=== PATIENT | female | born 1945 | race Two or more races ===

== ENCOUNTER → 2019-09-29 | Day surgery (SDC) | payer MEDICARE ==
[2019-09-26 15:26] LABS: BASOPHILS % 0.4 % (0.0-1.0); EOSINOPHILS # (AUTO) 0.2 (0.0-0.4); EOSINOPHILS % 2.5 % (0.0-6.0); HEMATOCRIT 40.3 % (34.2-44.1); HEMOGLOBIN 13.6 g/dL (12.0-16.0); LYMPHOCYTES # (AUTO) 1.4 (1.0-3.2); LYMPHOCYTES % 17.1 % (18.0-39.1); MEAN CORPUSCULAR HEMOGLOBIN 30.8 pg (28-32); MEAN CORPUSCULAR HGB CONC 33.7 g/dL (31-35); MEAN CORPUSCULAR VOLUME 91.4 fL (81-99); MONOCYTES # (AUTO) 0.5 (0.2-0.8); MONOCYTES % 6.2 % (4.4-11.3); NEUTROPHILS # (AUTO) 5.8 (2.1-6.9); NEUTROPHILS % 73.4 % (38.7-80.0); PLATELET COUNT 263 x10e3/uL (140-360); RED BLOOD COUNT 4.41 x10e6/uL (3.6-5.1); RED CELL DISTRIBUTION WIDTH 12.4 % (11.7-14.4)
[~2019-09-29] MED LIST: CALCIUM CARBON500 MG PO; FAMOTIDINE20 MG PO; LIDOCAINE HCL 2% LOCAL INJ 5 ML SDV VIAL INJ ONE; MIDAZOLAM HCL 2 MG/2 ML VIAL ONE; PANTOPRAZOLE SO40 MG PO; PROPOFOL IV EMULSION 10 MG/ML 50 ML VIAL ONE; VITAMIN D3400 UNI1 PO
[2019-09-29 12:15] VITALS: BP 109/60
--- NOTE | 2019-09-29 18:56 | Operative Report ---
DATE OF PROCEDURE: SURGEON: Mauri Higuera MD PROCEDURE PERFORMED: Esophagogastroduodenoscopy. PREOPERATIVE DIAGNOSIS: Gastroesophageal reflux disease. POSTOPERATIVE DIAGNOSES: Hiatal hernia with reflux esophagitis and gastritis. PREOP MEDICATIONS: Consisted of MAC. DESCRIPTION OF PROCEDURE: Using an Flipps video gastroscope was inserted into the patient's oropharynx, advanced to hypopharynx and down to the esophagus. The mucosa present in the esophagus was normal except for a very small area at the GE junction, which was a little bit inflamed, which has been followed by a small sliding type hiatal hernia from 37-38 cm. The stomach was entered and insufflated with air. The mucosa present in the cardia, fundus, body, and antrum was viewed. There was gastritis in the antrum, but the rest of the stomach appeared to be normal. Biopsy was obtained in the antrum, looking for the Helicobacter pylori infection. The pylorus was visualized and entered the duodenal bulb and postbulbar duodenum were found to be within normal limits. The endoscope was then withdrawn back up into the stomach. Retroflexed view in the cardia and fundus from below was normal. It was then placed back in the body of the stomach and slowly withdrawn back up into the esophagus. A biopsy was obtained of the GE junction. The scope was then further withdrawn back into the hypopharynx, oropharynx, and out of the patient's mouth and the procedure was ended. In conclusion, we have findings of a hiatal hernia with a sliding type of hiatal hernia and reflux esophagitis as well as a gastritis. Mauri Higuera MD SAF/MODL /[id number]
== END | disposition home or self-care (01) ==
LOC: OR 08:43
PROVIDERS: ATTEND Internal Medicine Gastroenterology
DX: K29.70 Gastritis, unspecified, without bleeding (principal); K21.0 Gastro-esophageal reflux disease with esophagitis; K44.9 Diaphragmatic hernia without obstruction or gangrene; K59.04 Chronic idiopathic constipation; R07.89 Other chest pain; Z91.041 Radiographic dye allergy status; Z01.810 Encounter for preprocedural cardiovascular examination; Z01.812 Encounter for preprocedural laboratory examination; Z86.010 Personal history of colon polyps
CPT/HCPCS: 36415; 43239; 85025; 88305; 88312; 93005; J2001; J2250; J2704

== ENCOUNTER → 2019-10-20 | Outpatient (CLI) | payer MEDICARE ==
[~2019-10-20] MED LIST changes: -LIDOCAINE HCL 2% LOCAL INJ 5 ML SDV VIAL INJ ONE; -MIDAZOLAM HCL 2 MG/2 ML VIAL ONE; -PROPOFOL IV EMULSION 10 MG/ML 50 ML VIAL ONE
--- NOTE | 2019-10-20 10:19 | Diagnostic Imaging Report ---
Esophagram. History: Atypical chest pain. Fluoroscopy Time: 0.52 min. Reference Air Kerma (Ka, r): 16.2 mGy. Technique/findings: The patient was given air crystals, thick barium, and thin barium to drink in upright and prone positions. Multiple images of the hypopharynx, esophagus, and proximal stomach were obtained. There is esophageal dysmotility with tertiary contractions noted. Contrast material is grossly clear through the esophagus and traverses the gastroesophageal junction. Esophageal mucosa is otherwise unremarkable without evidence for filling defect, stricture, or other mucosal abnormality. There is a small hiatal hernia present. Mild gastroesophageal reflux noted during the course of the examination. The gastric fundus is unremarkable. IMPRESSION: Esophageal dysmotility. Small hiatal hernia. Gastroesophageal reflux. Signed by: Dr. Kamran Morales MD on 10/20/2019 10:15 AM
== END ==
LOC: DX 08:29
PROVIDERS: ATTEND Internal Medicine Gastroenterology
DX: R07.89 Other chest pain (principal)
CPT/HCPCS: 74220

== ENCOUNTER → 2020-08-29 | Day surgery (SDC) | payer MEDICARE, OTHER ==
[2020-08-24 13:16] LABS: BASOPHILS % 0.3 % (0.0-1.0); EOSINOPHILS # (AUTO) 0.3 (0.0-0.4); EOSINOPHILS % 3.9 % (0.0-6.0); HEMATOCRIT 40.1 % (34.2-44.1); HEMOGLOBIN 13.3 g/dL (12.0-16.0); LYMPHOCYTES # (AUTO) 1.4 (1.0-3.2); LYMPHOCYTES % 19.3 % (18.0-39.1); MEAN CORPUSCULAR HEMOGLOBIN 30.2 pg (28-32); MEAN CORPUSCULAR HGB CONC 33.2 g/dL (31-35); MEAN CORPUSCULAR VOLUME 91.1 fL (81-99); MONOCYTES # (AUTO) 0.5 (0.2-0.8); MONOCYTES % 6.3 % (4.4-11.3); NEUTROPHILS # (AUTO) 5.1 (2.1-6.9); NEUTROPHILS % 70.1 % (38.7-80.0); PLATELET COUNT 258 x10e3/uL (140-360); RED CELL DISTRIBUTION WIDTH 12.6 % (11.7-14.4)
[~2020-08-29] MED LIST changes: +FENTANYL CITRATE/PF 100MCG/2 ML INJ ONE; +LIDOCAINE HCL 2% LOCAL INJ 5 ML SDV VIAL INJ ONE; +MIDAZOLAM HCL 2 MG/2 ML VIAL ONE; +PROPOFOL IV EMULSION 10 MG/ML 20 ML VIAL ONE
[2020-08-29 10:55] VITALS: BP 124/86
== END | disposition home or self-care (01) ==
LOC: OR 07:17
PROVIDERS: ATTEND Internal Medicine Gastroenterology
DX: R19.4 Change in bowel habit (principal); Z86.010 Personal history of colon polyps; K21.9 Gastro-esophageal reflux disease without esophagitis; Z91.041 Radiographic dye allergy status; Z01.810 Encounter for preprocedural cardiovascular examination; Z01.812 Encounter for preprocedural laboratory examination; Z11.59 Encounter for screening for other viral diseases
CPT/HCPCS: 36415; 45378; 85025; 93005; U0002; J2001; J2250; J3010

== ENCOUNTER → 2022-02-19 | Outpatient (CLI) | payer MEDICARE ==
[~2022-02-19] MED LIST changes: -FENTANYL CITRATE/PF 100MCG/2 ML INJ ONE; -LIDOCAINE HCL 2% LOCAL INJ 5 ML SDV VIAL INJ ONE; -MIDAZOLAM HCL 2 MG/2 ML VIAL ONE; -PROPOFOL IV EMULSION 10 MG/ML 20 ML VIAL ONE
== END ==
LOC: MAMMO 12:57
PROVIDERS: ATTEND Family Medicine
DX: Z12.31 Encounter for screening mammogram for malignant neoplasm of breast (principal); M85.88 Other specified disorders of bone density and structure, other site; Z78.0 Asymptomatic menopausal state
CPT/HCPCS: 77067; 77080

== ENCOUNTER → 2022-04-04 | Outpatient (CLI) | payer MEDICARE | LOC: MRI 09:33 | PROVIDERS: ATTEND Specialist | DX: M19.012 Primary osteoarthritis, left shoulder (principal) ==

== ENCOUNTER → 2023-05-15 | Outpatient (CLI) | payer MEDICARE | LOC: MAMMO 12:29 | PROVIDERS: ATTEND Family Medicine | DX: Z12.31 Encounter for screening mammogram for malignant neoplasm of breast (principal) | CPT/HCPCS: 77067 ==

== ENCOUNTER 2024-07-20 12:33 | Emergency (ER) | payer MEDICARE ==
[~2024-07-20] VITALS: Ht 162.6 cm; Wt 56.2 kg
[~2024-07-20 12:33] MED LIST changes: +MIRAFIBER PO
[2024-07-20 17:49] VITALS: PULSE 65; RESP 14; TEMP 98.6; O2SAT 98
== END 2024-07-20 17:51 | disposition home or self-care (01) ==
LOC: ER 14:28
DX: S83.8X1A Sprain of other specified parts of right knee, initial encounter (principal); S70.01XA Contusion of right hip, initial encounter; S90.31XA Contusion of right foot, initial encounter; W18.31XA Fall on same level due to stepping on an object, initial encounter; Y93.01 Activity, walking, marching and hiking; Y92.89 Other specified places as the place of occurrence of the external cause; K21.9 Gastro-esophageal reflux disease without esophagitis
CPT/HCPCS: 99284